=== PATIENT | female | born 1995 | race Two or more races ===

== ENCOUNTER 2020-06-23 21:49 | Emergency (ER) | payer OTHER ==
[~2020-06-23] VITALS: Ht 170.2 cm; Wt 122.5 kg
[2020-06-23 22:15] VITALS: BP 137/77
== END 2020-06-23 23:32 | disposition home or self-care (01) ==
LOC: ER 21:52
DX: S60.111A Contusion of right thumb with damage to nail, initial encounter (principal); W23.0XXA Caught, crushed, jammed, or pinched between moving objects, initial encounter; Y93.89 Activity, other specified; Y92.89 Other specified places as the place of occurrence of the external cause; Y99.8 Other external cause status
CPT/HCPCS: 73130-TC